=== PATIENT | male | born 1955 | race Caucasian/White ===

== ENCOUNTER 2023-08-18 07:58 | Outpatient (CLI) | payer OTHER, SELFPAY | END 2023-08-18 07:59 | disposition home or self-care (01) | LOC: RAD 08:00 | PROVIDERS: PCP Pediatrics; Visit Provider Pediatrics | DX: G47.33 Obstructive sleep apnea (adult) (pediatric) (principal); I51.7 Cardiomegaly; I35.1 Nonrheumatic aortic (valve) insufficiency; I07.1 Rheumatic tricuspid insufficiency | CPT/HCPCS: 93306 ==

== ENCOUNTER 2023-10-10 20:55 | Outpatient (CLI) | payer OTHER, SELFPAY ==
--- NOTE | 2023-10-17 11:56 | W.PM.SLEEP ---
Sleep Study Details Details Interpreting Provider: Janie Date of Sleep Study: 10/10/23 Sleep Study Details: STUDY TYPE:? Hospital-based CPAP titration study ? BMI:? 27.3 ORDERING PROVIDER:? Janie INDICATION:? Previous positive sleep study ? SLEEP SUMMARY:? Total sleep time 367.5 minutes RESPIRATORY SUMMARY:? The overall AHI for this study was 6.4. Patient was titrated on CPAP up to a pressure of 9 decreasing AHI to 5.7 and including 58 minutes of REM sleep some in the supine position. PERIODIC LIMB MOVEMENTS OF SLEEP:? Post treatment index 20.4, index with arousal 0.7 CARDIAC:? Awake 56, asleep 54. Some PACs noted IMPRESSION:? Successful CPAP titration study at a pressure of 9. RECOMMENDATION: Would recommend AutoSet CPAP at 9-17 with close follow-up.
== END 2023-10-10 20:56 | disposition home or self-care (01) ==
LOC: SLEEP 20:56
PROVIDERS: PCP Pediatrics; Visit Provider Otolaryngology
DX: G47.33 Obstructive sleep apnea (adult) (pediatric) (principal)
CPT/HCPCS: 95811